=== PATIENT | male | born 1980 | race Caucasian/White ===

== ENCOUNTER → 2018-01-07 07:20 | Outpatient (CLI) | payer OTHER, SELFPAY ==
[2018-01-07 11:29] LABS: Absolute Lymphocyte Count 1.49 X10^3/ul (0.83-4.51); Absolute Neutrophil Count 2.5 X10^3/uL (2.0-7.7); Eosinophil# 0.06 X10^3/uL; Eosinophils% 1.3 % (0-5); Hematocrit 48.7 % (40-54); Hemoglobin 16.7 g/dl (13.0-16.5); Lymphocyte # 1.49 X10^3/ul (4.0); Lymphocyte % 32.9 % (19-41); Mean Corp Hgb Conc 34.3 g/gl (32-36); Mean Corpuscular Hgb 30.5 pg (27.0-32.0); Mean Platelet Vol. 11.7 fl (6.2-12.0); Monocyte# 0.53 X10^3/uL; Monocyte% 11.7 % (0-10); Neutrophil # 2.45 X10^3/uL (2.7-7.7); Neutrophil % 54.1 % (47-70); POSITIVE COUNT NO; POSITIVE DIFFERENTIAL NO; POSITIVE MORPHOLOGY NO; Platelet Count 158 K/mm3 (150-450); RBC Distribution Width CV 13.4 % (11.6-14.6); RBC Distribution Width SD 43.9 fl (35.1-43.9); Red Blood Count 5.47 M/mm3 (4.6-6.2); White Blood Count 4.5 K/mm3 (4.4-11.0)
[2018-01-07 11:32] LABS: Color, Urine Yellow (Yellow); Glucose, Dipstick Normal (Normal); Ketone-Dipstick 5 mg/dl (Negative); Leukocyte Esterase-Dipstick 25 /ul (Negative); Nitrite-Dipstick Negative (Negative); Occult Blood-Urine Negative /ul (Negative); Protein-Dipstick 15 mg/dl (Negative); Specific Gravity, Urine 1.025 (1.002-1.030); Urine Bilirubin Dipstick Negative (Negative); Urine Clarity Clear (Clear); Urine Urobilinogen Normal (Normal)
[2018-01-07 12:01] LABS: ALB/GLOB Ratio 1.6 RATIO (0.9-2.4); AST(SGOT) 19 U/L (15-37); Alanine Aminotransfer ALT/SGPT 31 U/L (16-61); Albumin, Serum 4.2 g/dL (3.2-5.0); Alkaline Phosphatase 73 U/L (45-117); Anion Gap 9 (5-15); BUN 18 mg/dL (7-18); BUN/Creat Ratio 15.7 RATIO (10-20); Calcium,Total 8.9 mg/dL (8.5-10.1); Chloride 108 mmol/L (98-107); Cholesterol 96 mg/dL (200); Creatinine, Serum 1.15 mg/dL (0.70-1.30); EST Glomerular Filtration Rate 75 mL/min (>60); Est Glom Filt Rate - Afr Amer 91 mL/min (>60); Globulin 2.6 g/dL (2.2-4.2); Glucose 82 mg/dL (74-106); High Density Lipoprotein 30 mg/dL; Potassium 3.5 mmol/L (3.5-5.1); Protein, Total 6.8 g/dL (6.4-8.2); Sodium Level 142 mmol/L (136-145); Triglycerides 105 mg/dL; Very Low Density Lipoprotein 21 mg/dL (5-40)
== END ==
PROVIDERS: Family Provider Family Medicine; PCP Family Medicine; Visit Provider Family Medicine
DX: Z00.00 Encounter for general adult medical examination without abnormal findings (principal)
CPT/HCPCS: 36415; 80053; 80061; 81002; 85025